=== PATIENT | female | born 1980 | race Two or more races ===

== ENCOUNTER 2018-02-09 19:32 | Emergency (ER) | payer MEDICAID ==
[~2018-02-09] VITALS: Ht 165.1 cm; Wt 56.5 kg
[~2018-02-09 19:32] MED LIST: FLUO40CA10 PO; IPRA3AMP IH; LEVA15HF4 IH; LORA10TA7 PO; OMEP40CA37 PO; TOPI50TA PO; TRAZ-146 PO
[2018-02-09] MEDS ORDERED: magnesium citrate 296ml oral solution PO STA (20:54)
[2018-02-09] MEDS ORDERED: normal saline 1000ML IV soln IVB ONE (20:55)
[2018-02-09] MEDS ORDERED: bisacodyl 10mg suppository rectal RC STA (22:37)
[2018-02-09 23:55] VITALS: BP 115/79
[2018-02-10] MEDS ORDERED: latuda PO (13:33)
[2018-02-10] MEDS ORDERED: DULO-31 PO (13:33)
[2018-02-10] MEDS ORDERED: LORA10TA65 PO (13:33)
[2018-02-10] MEDS ORDERED: DIVA500T2 PO (13:33)
== END 2018-02-10 00:13 | disposition home or self-care (01) ==
LOC: ER 19:32
DX: K59.00 Constipation, unspecified (principal); J45.909 Unspecified asthma, uncomplicated; G89.29 Other chronic pain; Z90.710 Acquired absence of both cervix and uterus; Z98.51 Tubal ligation status; Z79.899 Other long term (current) drug therapy; Z88.1 Allergy status to other antibiotic agents; Z88.8 Allergy status to other drugs, medicaments and biological substances
CPT/HCPCS: 99284; J7030

== ENCOUNTER 2018-02-10 12:51 | Day surgery (SDC) | payer MEDICAID ==
[~2018-02-10] VITALS: Ht 165.1 cm; Wt 50.9 kg
[2018-02-10] MEDS ORDERED: fentaNYL/PF 50MCG/1 ML 2ML syringe ONE (13:05)
[2018-02-10] MEDS ORDERED: MIDAZolam 5mg/5ml vial ONE (13:06)
[2018-02-10 13:07] VITALS: BP 113/69
[2018-02-10] MEDS ORDERED: latuda PO (13:33)
[2018-02-10] MEDS ORDERED: DULO-31 PO (13:33)
[2018-02-10] MEDS ORDERED: DIVA500T2 PO (13:33)
[2018-02-10] MEDS ORDERED: LORA10TA65 PO (13:33)
[2018-02-10 15:44] VITALS: BP 105/61
[2018-02-10 15:54] VITALS: BP 103/57
[2018-02-10 16:04] VITALS: BP 103/56
== END 2018-02-10 16:44 | disposition home or self-care (01) ==
LOC: GI LAB 12:51
PROVIDERS: ATTEND Internal Medicine Gastroenterology
DX: K64.8 Other hemorrhoids (principal); Q43.8 Other specified congenital malformations of intestine; J44.9 Chronic obstructive pulmonary disease, unspecified; F17.210 Nicotine dependence, cigarettes, uncomplicated; F31.9 Bipolar disorder, unspecified; Z88.2 Allergy status to sulfonamides; Z79.891 Long term (current) use of opiate analgesic; Z98.51 Tubal ligation status; Z90.710 Acquired absence of both cervix and uterus; Z87.820 Personal history of traumatic brain injury; Z90.89 Acquired absence of other organs; Z72.89 Other problems related to lifestyle; Z90.721 Acquired absence of ovaries, unilateral; Z98.890 Other specified postprocedural states; Z79.899 Other long term (current) drug therapy; Z88.8 Allergy status to other drugs, medicaments and biological substances
CPT/HCPCS: 45378; 99152; 99153; J2250; J3010; J7030; A4620; G0500

== ENCOUNTER 2018-03-05 11:18 | Emergency (ER) | payer MEDICAID ==
[~2018-03-05] VITALS: Ht 571.8 cm; Wt 61.0 kg
[~2018-03-05 11:18] MED LIST changes: +DIVA500T2 PO; +DULO-31 PO; -FLUO40CA10 PO; -IPRA3AMP IH; -LEVA15HF4 IH; +LORA10TA65 PO; -LORA10TA7 PO; -OMEP40CA37 PO; -TOPI50TA PO; -TRAZ-146 PO; +TRAZ-219 PO; +latuda PO
[2018-03-05 11:20] VITALS: BP 116/81
[2018-03-05] MEDS ORDERED: LIDOcaine 1% 30ml preserv. free vial IJ ONE (11:35)
[2018-03-05] MEDS ORDERED: FLUC150T PO (11:49)
[2018-03-05] MEDS ORDERED: CEPH-571 PO (11:49)
[2018-03-05] MEDS ORDERED: IBUP-1984 PO (11:58)
[2018-03-05] MEDS ORDERED: HYDROcodone/acetaminophen 5mg/325mg tablet PO ONE (12:00)
== END 2018-03-05 12:14 | disposition home or self-care (01) ==
LOC: ER 11:18
DX: K04.7 Periapical abscess without sinus (principal); K02.9 Dental caries, unspecified; J45.909 Unspecified asthma, uncomplicated; G89.29 Other chronic pain; Z90.710 Acquired absence of both cervix and uterus; Z90.89 Acquired absence of other organs; Z98.51 Tubal ligation status; Z88.2 Allergy status to sulfonamides; Z88.1 Allergy status to other antibiotic agents; Z79.2 Long term (current) use of antibiotics; Z79.1 Long term (current) use of non-steroidal anti-inflammatories (NSAID); Z79.899 Other long term (current) drug therapy
CPT/HCPCS: 41800; 99283

== ENCOUNTER 2019-08-18 06:31 | Emergency (ER) | payer MEDICAID ==
[~2019-08-18] VITALS: Ht 165.1 cm; Wt 54.5 kg
[~2019-08-18 06:31] MED LIST changes: +CEPH-571 PO; -TRAZ-219 PO; +TRAZ-256 PO
[2019-08-18] MEDS ORDERED: buprenorphine/naloxone 8MG-2MG SUBlingual film SL SCH (07:10)
[2019-08-18] MEDS ORDERED: amoxicillin 250mg capsule PO ONE (07:10)
[2019-08-18] MEDS ORDERED: ketorolac trometh inj. 60 MG/2 ML VIAL IM ONE (07:10)
[2019-08-18] MEDS ORDERED: AMOX500C2 PO (07:13)
[2019-08-18 07:53] VITALS: BP 140/87
== END 2019-08-18 07:55 | disposition home or self-care (01) ==
LOC: ER 06:32
DX: K08.89 Other specified disorders of teeth and supporting structures (principal); J45.909 Unspecified asthma, uncomplicated; G89.29 Other chronic pain; Z90.710 Acquired absence of both cervix and uterus; Z90.89 Acquired absence of other organs; Z98.51 Tubal ligation status; Z88.2 Allergy status to sulfonamides; Z88.8 Allergy status to other drugs, medicaments and biological substances; Z79.899 Other long term (current) drug therapy
CPT/HCPCS: 96372; 99283; J1885

== ENCOUNTER 2019-08-20 08:47 | Emergency (ER) | payer MEDICAID ==
[~2019-08-20] VITALS: Ht 165.1 cm; Wt 54.0 kg
[~2019-08-20 08:47] MED LIST changes: +AMOX500C2 PO
[2019-08-20] MEDS ORDERED: ketorolac tromethamine 15mg/ml inj. IM ONE (11:05)
[2019-08-20 11:22] VITALS: BP 157/99
== END 2019-08-20 11:30 | disposition home or self-care (01) ==
LOC: ER 08:48
DX: K08.89 Other specified disorders of teeth and supporting structures (principal); J45.909 Unspecified asthma, uncomplicated; G89.29 Other chronic pain; F12.90 Cannabis use, unspecified, uncomplicated; F17.200 Nicotine dependence, unspecified, uncomplicated; Z90.710 Acquired absence of both cervix and uterus; Z98.51 Tubal ligation status; Z98.890 Other specified postprocedural states; Z88.2 Allergy status to sulfonamides; Z88.1 Allergy status to other antibiotic agents; Z79.2 Long term (current) use of antibiotics; Z79.899 Other long term (current) drug therapy
CPT/HCPCS: 96372; 99283; J1885

== ENCOUNTER 2020-02-22 14:59 | Emergency (ER) | payer MEDICAID ==
[~2020-02-22] VITALS: Ht 165.1 cm; Wt 57.8 kg
[~2020-02-22 14:59] MED LIST changes: -AMOX500C2 PO
[2020-02-22 15:41] LABS: CLARITY,URINE SLIGHTLY CLOUDY (Clear); COLOR,URINE STRAW (Yellow); GLUCOSE, URINE NEGATIVE (Neg); KETONES,URINE NEGATIVE (Neg); LEUKOCYTE ESTERASE ,URINE NEGATIVE (Neg); NITRITES, URINE NEGATIVE (Neg); OCCULT BLOOD,URINE NEGATIVE (Neg); PROTEIN,URINE NEGATIVE (Neg); URINE HCG NEGATIVE (NEG)
[2020-02-22 15:42] LABS: UA COLLECTION TYPE CLN CATCH MIDSTREAM
[2020-02-22 15:47] LABS: MUCUS STRANDS FEW /LPF (Neg); SQUAMOUS EPITHELIAL CELL,UR MANY /LPF (FEW); TRANSITIONAL EPI CELLS,URINE FEW /HPF
[2020-02-22 15:49] LABS: BACTERIA,URINE FEW /HPF (Neg); RBC,URINE 0-2 /HPF (0-2)
--- NOTE | 2020-02-22 15:49 | NUR ---
LAB CALLED [facility] REJECTED FOR CULTURE
[2020-02-22 17:34] LABS: BASOPHILS % (AUTO) 0.3 % (0-1); EOSINOPHILS % (AUTO) 0.5 % (0-6); HEMATOCRIT 38.7 % (35.0-45.0); LYMPHOCYTES # (AUTO) 3.2 X10'3 (1.1-4.8); MEAN CORPUSCULAR HEMOGLOBIN 33.6 PG (27.0-31.0); MEAN CORPUSCULAR HGB CONC 33.6 g/dL (33.0-36.5); MEAN PLATELET VOLUME 7.5 FL (7.4-10.4); MONOCYTES # (AUTO) 0.4 X10'3 (0-0.9); MONOCYTES % (AUTO) 5.8 % (2-12); NEUTROPHILS # (AUTO) 3.3 X10'3 (1.8-7.7); NEUTROPHILS % (AUTO) 47.4 % (42-75); PLATELET COUNT 283 X10'3 (140-440); RED BLOOD COUNT 3.88 X10'6 (4.20-5.60); RED CELL DISTRIBUTION WIDTH 14.1 % (11.5-14.5); WHITE BLOOD COUNT 6.9 X10'3 (4.5-11.0)
[2020-02-22] MEDS ORDERED: LIDOcaine 5% patch TP STA (17:36)
[2020-02-22] MEDS ORDERED: ketorolac tromethamine 15mg/ml inj. IV ONE (17:40)
[2020-02-22 17:45] LABS: ALANINE AMINOTRANSFERASE 14 U/L (12-78); ALBUMIN 3.9 G/DL (3.4-5.0); ALBUMIN/GLOBULIN RATIO 1.3 (1.1-1.5); ALKALINE PHOSPHATASE 69 IU/L (46-116); ANION GAP 8 (8-16); ASPARTATE AMINO TRANSFERASE 20 U/L (10-37); BILIRUBIN,TOTAL 0.2 MG/DL (0.1-1.0); BLOOD UREA NITROGEN 9 MG/DL (7-18); CALCIUM 8.8 MG/DL (8.5-10.1); CHLORIDE 107 MMOL/L (99-107); GLUCOSE 88 MG/DL (70-104); LIPASE 98 U/L (73-393); POTASSIUM 3.9 MMOL/L (3.5-5.1); SODIUM 140 MMOL/L (135-145); eGFR > 90 ML/MIN
[2020-02-22] MEDS ORDERED: LIDO700A32 TOP (18:21)
[2020-02-22] MEDS ORDERED: IBUP-1985 PO (18:21)
[2020-02-22 18:27] VITALS: BP 133/90
== END 2020-02-22 18:26 | disposition home or self-care (01) ==
LOC: ER 15:00
DX: S39.012A Strain of muscle, fascia and tendon of lower back, initial encounter (principal); R35.0 Frequency of micturition; J45.909 Unspecified asthma, uncomplicated; G89.29 Other chronic pain; F17.210 Nicotine dependence, cigarettes, uncomplicated; F12.90 Cannabis use, unspecified, uncomplicated; Z90.710 Acquired absence of both cervix and uterus; Z98.51 Tubal ligation status; Z88.2 Allergy status to sulfonamides; Z88.8 Allergy status to other drugs, medicaments and biological substances; Z79.899 Other long term (current) drug therapy; X58.XXXA Exposure to other specified factors, initial encounter; Y93.89 Activity, other specified; Y92.89 Other specified places as the place of occurrence of the external cause; Y99.8 Other external cause status
CPT/HCPCS: 36415; 80053; 81001; 81025; 83690; 85025; 96374; 99283; J1885

== ENCOUNTER 2021-03-24 17:17 | Emergency (ER) | payer MEDICAID ==
[~2021-03-24] VITALS: Ht 165.1 cm; Wt 8.3 kg
[~2021-03-24 17:17] MED LIST changes: +IBUP-1985 PO; +LIDO700A32 TOP
[2021-03-24 17:43] VITALS: BP 120/85
== END 2021-03-24 20:34 | disposition left against medical advice (07) ==
LOC: ER 17:18
DX: K04.7 Periapical abscess without sinus (principal); R51.9 Headache, unspecified; R50.9 Fever, unspecified; K08.89 Other specified disorders of teeth and supporting structures; J45.909 Unspecified asthma, uncomplicated; F12.90 Cannabis use, unspecified, uncomplicated; G89.29 Other chronic pain; Z90.710 Acquired absence of both cervix and uterus; Z98.51 Tubal ligation status; Z88.1 Allergy status to other antibiotic agents; Z88.8 Allergy status to other drugs, medicaments and biological substances; Z79.2 Long term (current) use of antibiotics; Z79.899 Other long term (current) drug therapy
CPT/HCPCS: 99281

== ENCOUNTER 2021-03-30 21:35 | Emergency (ER) | payer MEDICAID ==
[~2021-03-30] VITALS: Ht 165.1 cm; Wt 57.7 kg
[2021-03-30 22:16] LABS: LYMPHOCYTES # (AUTO) 3.9 X10'3 (1.1-4.8); MONOCYTES # (AUTO) 0.6 X10'3 (0-0.9); RED CELL DISTRIBUTION WIDTH 13.7 % (11.5-14.5)
[2021-03-30 22:18] LABS: BASOPHILS % (AUTO) 0.2 % (0-1); EOSINOPHILS # (AUTO) 0.1 X10'3 (0-0.9); EOSINOPHILS % (AUTO) 0.8 % (0-6); HEMATOCRIT 38.9 % (35.0-45.0); LYMPHOCYTES % (AUTO) 62.2 % (21-51); MEAN CORPUSCULAR HEMOGLOBIN 32.7 PG (27.0-31.0); MEAN CORPUSCULAR HGB CONC 33.4 g/dL (33.0-36.5); MEAN CORPUSCULAR VOLUME 97.7 FL (78-98); MEAN PLATELET VOLUME 6.6 FL (7.4-10.4); NEUTROPHILS # (AUTO) 1.8 X10'3 (1.8-7.7); NEUTROPHILS % (AUTO) 27.8 % (42-75); PLATELET COUNT 293 X10'3 (140-440); RED BLOOD COUNT 3.98 X10'6 (4.20-5.60); WHITE BLOOD COUNT 6.3 X10'3 (4.5-11.0)
[2021-03-30 22:22] LABS: ALANINE AMINOTRANSFERASE 19 U/L (12-78); ALBUMIN 3.9 G/DL (3.4-5.0); ALBUMIN/GLOBULIN RATIO 1.1 (1.1-1.5); ALKALINE PHOSPHATASE 81 IU/L (46-116); ANION GAP 6 (8-16); ASPARTATE AMINO TRANSFERASE 11 U/L (10-37); BILIRUBIN,TOTAL 0.2 MG/DL (0.1-1.0); BLOOD UREA NITROGEN 20 MG/DL (7-18); BUN/CREATININE RATIO 32.3 (6.6-38.0); CHLORIDE 105 MMOL/L (99-107); CREATININE 0.62 MG/DL (0.40-0.90); GLUCOSE 96 MG/DL (70-104); POTASSIUM 4.2 MMOL/L (3.5-5.1); SODIUM 141 MMOL/L (135-145); TOTAL CARBON DIOXIDE 30.2 MMOL/L (24-32); TOTAL PROTEIN 7.3 G/DL (6.4-8.2); eGFR > 90 ML/MIN
[2021-03-30 22:30] LABS: TROPONIN I < 0.04 NG/ML (0.0-0.05)
[2021-03-30] MEDS ORDERED: iohexol 350MG/ML 100ml bottle IV ONE (23:12)
[2021-03-30] MEDS ORDERED: normal saline 1000ML IV soln IVB ONE (23:30)
[2021-03-30] MEDS ORDERED: nitroGLYCERIN 0.4mg SUBLingual tab SL PRN (23:30)
[2021-03-30] MEDS ORDERED: aspirin 81mg tab.chew PO ONE (23:30)
--- NOTE | 2021-03-31 02:07 | NUR ---
PT is a&o X4, no active CP at this time. gait is steady, affect is happy and cooperative. Sleeping peacefully at this time. no pedal edema noted.
[2021-03-31 02:41] VITALS: BP 99/55
== END 2021-03-31 02:45 | disposition home or self-care (01) ==
LOC: ER 21:36
DX: R07.89 Other chest pain (principal); I25.10 Atherosclerotic heart disease of native coronary artery without angina pectoris; M25.512 Pain in left shoulder; R06.02 Shortness of breath; J45.909 Unspecified asthma, uncomplicated; G89.29 Other chronic pain; F12.90 Cannabis use, unspecified, uncomplicated; F15.90 Other stimulant use, unspecified, uncomplicated; Z90.710 Acquired absence of both cervix and uterus; Z98.51 Tubal ligation status; Z90.89 Acquired absence of other organs; Z88.1 Allergy status to other antibiotic agents; Z88.8 Allergy status to other drugs, medicaments and biological substances; Z79.2 Long term (current) use of antibiotics; Z79.899 Other long term (current) drug therapy
CPT/HCPCS: 36415; 71045; 71275; 80053; 83880; 84484; 85025; 85379; 93005; 99285; J7030; Q9967

== ENCOUNTER → 2021-05-18 | Emergency (ER) | payer MEDICARE, MEDICAID ==
[~2021-05-18] VITALS: Ht 165.1 cm; Wt 64.0 kg
[~2021-05-18] MED LIST changes: +BISA10SU64 RC; +DOCU-148 PO; +MAGN296S68 PO; +MAGN296S70 PO
[2021-05-18 15:53] VITALS: BP 126/79
== END | disposition home or self-care (01) ==
LOC: ER 14:53
DX: K59.00 Constipation, unspecified (principal); R11.10 Vomiting, unspecified; J45.909 Unspecified asthma, uncomplicated; G89.29 Other chronic pain; F12.90 Cannabis use, unspecified, uncomplicated; F15.90 Other stimulant use, unspecified, uncomplicated; Z90.710 Acquired absence of both cervix and uterus; Z98.51 Tubal ligation status; Z88.2 Allergy status to sulfonamides; Z88.8 Allergy status to other drugs, medicaments and biological substances; Z79.2 Long term (current) use of antibiotics; Z79.899 Other long term (current) drug therapy
CPT/HCPCS: 99282; 99283

== ENCOUNTER → 2021-05-22 | Emergency (ER) | payer MEDICARE, MEDICAID ==
[~2021-05-22] VITALS: Ht 165.1 cm; Wt 64.1 kg
[~2021-05-22] MED LIST changes: +magnesium citrate 296ml oral solution PO ONE; +mineral oil 133ml enema RC PRN
[2021-05-22 12:22] VITALS: BP 137/92
[2021-05-22 12:47] LABS: URINE HCG NEGATIVE (NEG)
[2021-05-22 12:50] LABS: BASOPHILS % (AUTO) 0.2 % (0-1); EOSINOPHILS % (AUTO) 0.6 % (0-6); HEMATOCRIT 38.4 % (35.0-45.0); HEMOGLOBIN 13.1 g/dl (12.0-16.0); LYMPHOCYTES # (AUTO) 3.6 X10'3 (1.1-4.8); LYMPHOCYTES % (AUTO) 52.1 % (21-51); MEAN CORPUSCULAR HEMOGLOBIN 33.4 PG (27.0-31.0); MEAN CORPUSCULAR HGB CONC 34.1 g/dL (33.0-36.5); MEAN CORPUSCULAR VOLUME 97.9 FL (78-98); MEAN PLATELET VOLUME 6.8 FL (7.4-10.4); MONOCYTES # (AUTO) 0.6 X10'3 (0-0.9); MONOCYTES % (AUTO) 8.4 % (2-12); NEUTROPHILS # (AUTO) 2.7 X10'3 (1.8-7.7); NEUTROPHILS % (AUTO) 38.7 % (42-75); PLATELET COUNT 286 X10'3 (140-440); RED BLOOD COUNT 3.92 X10'6 (4.20-5.60); RED CELL DISTRIBUTION WIDTH 13.8 % (11.5-14.5)
[2021-05-22 12:54] LABS: CLARITY,URINE CLEAR (Clear); COLOR,URINE YELLOW (Yellow); GLUCOSE, URINE Negative (Neg); KETONES,URINE NEGATIVE (Neg); OCCULT BLOOD,URINE NEGATIVE (Neg); PH,URINE 7.5 (4.8-8.0); PROTEIN,URINE Trace mg/dl (Neg); UA COLLECTION TYPE CLN CATCH MIDSTREAM
[2021-05-22 12:55] LABS: LEUKOCYTE ESTERASE ,URINE NEGATIVE (Neg); NITRITES, URINE NEGATIVE (Neg); UROBILINOGEN,URINE 0.2 E.U/dL (0.2-1.0)
[2021-05-22 12:59] LABS: ALANINE AMINOTRANSFERASE 18 U/L (12-78); ALBUMIN 4.1 G/DL (3.4-5.0); ALBUMIN/GLOBULIN RATIO 1.2 (1.1-1.5); ALKALINE PHOSPHATASE 69 IU/L (46-116); ANION GAP 7 (8-16); ASPARTATE AMINO TRANSFERASE 18 U/L (10-37); BILIRUBIN,TOTAL 0.2 MG/DL (0.1-1.0); BLOOD UREA NITROGEN 18 MG/DL (7-18); BUN/CREATININE RATIO 32.1 (6.6-38.0); CHLORIDE 106 MMOL/L (99-107); CREATININE 0.56 MG/DL (0.40-0.90); GLUCOSE 84 MG/DL (70-104); LIPASE 75 U/L (73-393); POTASSIUM 3.9 MMOL/L (3.5-5.1); SODIUM 141 MMOL/L (135-145); TOTAL CARBON DIOXIDE 27.8 MMOL/L (24-32); TOTAL PROTEIN 7.6 G/DL (6.4-8.2); eGFR > 90 ML/MIN
[2021-05-22 13:03] LABS: BACTERIA,URINE NONE SEEN /HPF (Neg); MUCUS STRANDS FEW /LPF (Neg); RBC,URINE NONE SEEN /HPF (0-2); SQUAMOUS EPITHELIAL CELL,UR FEW /LPF (FEW); WBC,URINE NONE SEEN /HPF (0-4)
[2021-05-22 13:25] LABS: PLATELET ESTIMATE NORMAL; TOTAL CELLS COUNTED 100
--- NOTE | 2021-05-22 16:59 | NUR ---
treat & d/c by CINTHYA Hwang
== END | disposition home or self-care (01) ==
LOC: ER 10:16
DX: K59.00 Constipation, unspecified (principal); J45.909 Unspecified asthma, uncomplicated; G89.29 Other chronic pain; Z90.710 Acquired absence of both cervix and uterus; Z98.51 Tubal ligation status; F12.90 Cannabis use, unspecified, uncomplicated; F15.90 Other stimulant use, unspecified, uncomplicated; Z79.899 Other long term (current) drug therapy; Z88.2 Allergy status to sulfonamides; Z88.8 Allergy status to other drugs, medicaments and biological substances; Z79.2 Long term (current) use of antibiotics
CPT/HCPCS: 36415; 74018; 80053; 81001; 81025; 83690; 85007; 85025; 99284

== ENCOUNTER 2021-07-30 14:52 | Emergency (ER) | payer MEDICARE, MEDICAID ==
[~2021-07-30] VITALS: Ht 165.1 cm; Wt 71.4 kg
[~2021-07-30 14:52] MED LIST changes: -magnesium citrate 296ml oral solution PO ONE; -mineral oil 133ml enema RC PRN
[2021-07-30 15:14] VITALS: BP 120/70
[2021-07-30] MEDS ORDERED: PRED20TA PO (15:59)
[2021-07-30] MEDS ORDERED: ALBU18HF2 INH (15:59)
== END 2021-07-30 16:16 | disposition home or self-care (01) ==
LOC: ER 14:52
DX: J44.1 Chronic obstructive pulmonary disease with (acute) exacerbation (principal); Z20.822 Contact with and (suspected) exposure to COVID-19; G89.29 Other chronic pain; F12.90 Cannabis use, unspecified, uncomplicated; F15.90 Other stimulant use, unspecified, uncomplicated; Z90.710 Acquired absence of both cervix and uterus; Z98.51 Tubal ligation status; Z88.2 Allergy status to sulfonamides; Z88.8 Allergy status to other drugs, medicaments and biological substances; Z79.2 Long term (current) use of antibiotics; Z79.899 Other long term (current) drug therapy
CPT/HCPCS: 87635; 99283; C9803

== ENCOUNTER 2021-08-07 22:50 | Emergency (ER) | payer MEDICARE, MEDICAID ==
[~2021-08-07] VITALS: Ht 165.1 cm; Wt 70.5 kg
[~2021-08-07 22:50] MED LIST changes: +ALBU18HF2 INH
[2021-08-07 23:49] LABS: BASOPHILS % (AUTO) 0.4 % (0-1); EOSINOPHILS # (AUTO) 0.1 X10'3 (0-0.9); HEMOGLOBIN 13.1 g/dl (12.0-16.0); MEAN CORPUSCULAR HEMOGLOBIN 33.3 PG (27.0-31.0); MEAN CORPUSCULAR HGB CONC 34.3 g/dL (33.0-36.5); MONOCYTES # (AUTO) 0.5 X10'3 (0-0.9)
[2021-08-07 23:50] LABS: EOSINOPHILS % (AUTO) 1.1 % (0-6); HEMATOCRIT 38.4 % (35.0-45.0); LYMPHOCYTES # (AUTO) 4.1 X10'3 (1.1-4.8); LYMPHOCYTES % (AUTO) 53.2 % (21-51); MEAN CORPUSCULAR VOLUME 97.2 FL (78-98); MEAN PLATELET VOLUME 6.4 FL (7.4-10.4); MONOCYTES % (AUTO) 6.5 % (2-12); NEUTROPHILS % (AUTO) 38.8 % (42-75); PLATELET COUNT 388 X10'3 (140-440); RED BLOOD COUNT 3.95 X10'6 (4.20-5.60); RED CELL DISTRIBUTION WIDTH 13.8 % (11.5-14.5); WHITE BLOOD COUNT 7.7 X10'3 (4.5-11.0)
[2021-08-08 00:04] LABS: ALANINE AMINOTRANSFERASE 29 U/L (12-78); ALBUMIN 4.1 G/DL (3.4-5.0); ALBUMIN/GLOBULIN RATIO 1.2 (1.1-1.5); ALKALINE PHOSPHATASE 86 IU/L (46-116); ANION GAP 9 (8-16); ASPARTATE AMINO TRANSFERASE 14 U/L (10-37); BILIRUBIN,TOTAL 0.2 MG/DL (0.1-1.0); BLOOD UREA NITROGEN 15 MG/DL (7-18); BUN/CREATININE RATIO 25.9 (6.6-38.0); CALCIUM 9.3 MG/DL (8.5-10.1); CHLORIDE 105 MMOL/L (99-107); CREATININE 0.58 MG/DL (0.40-0.90); GLUCOSE 85 MG/DL (70-104); POTASSIUM 3.8 MMOL/L (3.5-5.1); SODIUM 142 MMOL/L (135-145); TOTAL CARBON DIOXIDE 27.8 MMOL/L (24-32); TOTAL PROTEIN 7.5 G/DL (6.4-8.2); eGFR > 90 ML/MIN
[2021-08-08 00:45] LABS: TOTAL CELLS COUNTED 100
[2021-08-08 00:46] LABS: PLATELET ESTIMATE NORMAL
[2021-08-08 00:47] LABS: ROULEAUX 1+
[2021-08-08 00:48] LABS: BURR CELLS FEW
[2021-08-08] MEDS ORDERED: albuterol 2.5 MG/3 ML nebule CONTNEB PRN (04:25)
[2021-08-08] MEDS ORDERED: predniSONE 20 mg tablet PO ONE (04:25)
[2021-08-08] MEDS ORDERED: ipratropium/albuterol 3ml nebule NEB ONE (06:50)
[2021-08-08] MEDS ORDERED: PRED20TA PO (06:56)
[2021-08-08 07:24] VITALS: BP 125/74
== END 2021-08-08 07:24 | disposition home or self-care (01) ==
LOC: ER 22:52
DX: J45.901 Unspecified asthma with (acute) exacerbation (principal); R06.03 Acute respiratory distress; G89.29 Other chronic pain; F17.200 Nicotine dependence, unspecified, uncomplicated; F12.90 Cannabis use, unspecified, uncomplicated; F15.90 Other stimulant use, unspecified, uncomplicated; Z90.710 Acquired absence of both cervix and uterus; Z98.51 Tubal ligation status; Z88.2 Allergy status to sulfonamides; Z88.8 Allergy status to other drugs, medicaments and biological substances; Z79.2 Long term (current) use of antibiotics; Z79.899 Other long term (current) drug therapy
CPT/HCPCS: 36415; 71045; 80053; 83605; 83880; 85007; 85025; 87040; 94640; 94644; 99291; J7512; 94760; 99285; A7015

== ENCOUNTER 2021-12-25 18:54 | Emergency (ER) | payer MEDICARE, MEDICAID ==
[~2021-12-25] VITALS: Ht 165.1 cm; Wt 65.9 kg
[2021-12-25 19:04] VITALS: BP 110/78
[2021-12-25] MEDS ORDERED: IBUP-1986 PO (21:26)
[2021-12-25] MEDS ORDERED: ketorolac trometh inj. 60 MG/2 ML VIAL IM ONE (21:30)
== END 2021-12-25 21:49 | disposition home or self-care (01) ==
LOC: ER 18:55
DX: K02.9 Dental caries, unspecified (principal); K08.89 Other specified disorders of teeth and supporting structures; J45.909 Unspecified asthma, uncomplicated; G89.29 Other chronic pain; F12.90 Cannabis use, unspecified, uncomplicated; F15.90 Other stimulant use, unspecified, uncomplicated; Z90.710 Acquired absence of both cervix and uterus; Z98.51 Tubal ligation status; Z90.89 Acquired absence of other organs; Z88.1 Allergy status to other antibiotic agents; Z88.8 Allergy status to other drugs, medicaments and biological substances; Z79.2 Long term (current) use of antibiotics; Z79.899 Other long term (current) drug therapy
CPT/HCPCS: 96372; 99283; J1885

== ENCOUNTER 2022-06-24 06:46 | Emergency (ER) | payer MEDICARE, MEDICAID ==
[~2022-06-24] VITALS: Ht 165.1 cm; Wt 73.2 kg
[~2022-06-24 06:46] MED LIST changes: +IBUP-1986 PO; +MAGN296S PO; -MAGN296S70 PO
[2022-06-24 07:16] VITALS: BP 127/89
== END 2022-06-24 13:39 | disposition left against medical advice (07) ==
LOC: ER 06:48
DX: K08.89 Other specified disorders of teeth and supporting structures (principal); Z53.21 Procedure and treatment not carried out due to patient leaving prior to being seen by health care provider

== ENCOUNTER 2024-06-27 18:19 | Emergency (ER) | payer MEDICARE, MEDICAID ==
[~2024-06-27 18:19] MED LIST changes: -MAGN296S PO; +MAGN296S89 PO
[2024-06-27 19:05] VITALS: BP 128/70; PULSE 84; RESP 18; TEMP 98.1; O2SAT 98
== END 2024-06-27 19:10 ==
LOC: ER 18:20
DX: Z02.89 Encounter for other administrative examinations (principal); J45.909 Unspecified asthma, uncomplicated; G89.29 Other chronic pain; M54.9 Dorsalgia, unspecified; F12.90 Cannabis use, unspecified, uncomplicated; F15.90 Other stimulant use, unspecified, uncomplicated; F17.210 Nicotine dependence, cigarettes, uncomplicated; Z90.710 Acquired absence of both cervix and uterus; Z98.51 Tubal ligation status; Z79.899 Other long term (current) drug therapy; Z79.1 Long term (current) use of non-steroidal anti-inflammatories (NSAID); Z88.2 Allergy status to sulfonamides; Z88.8 Allergy status to other drugs, medicaments and biological substances; V43.52XA Car driver injured in collision with other type car in traffic accident, initial encounter; Y93.89 Activity, other specified; Y92.89 Other specified places as the place of occurrence of the external cause; Y99.8 Other external cause status
CPT/HCPCS: 99283